=== PATIENT | male | born 1990 | race Caucasian/White ===

== ENCOUNTER 2022-07-11 08:12 | Emergency (ER) | payer OTHER, MEDICAID ==
[~2022-07-11] VITALS: Ht 177.8 cm; Wt 75.0 kg
[2022-07-11 08:15] VITALS: BP 130/82
[2022-07-11] MEDS ORDERED: ONDANSETRON 4MG ODT PO ONE (09:00)
== END 2022-07-11 11:32 ==
LOC: ER 08:12
DX: R11.10 Vomiting, unspecified (principal); V49.49XA Driver injured in collision with other motor vehicles in traffic accident, initial encounter; Y93.89 Activity, other specified; Y92.89 Other specified places as the place of occurrence of the external cause; Y99.8 Other external cause status; Z90.49 Acquired absence of other specified parts of digestive tract
CPT/HCPCS: 99283